=== PATIENT | female | born 1990 | race Caucasian/White ===

== ENCOUNTER 2016-12-02 12:19 | Inpatient (IN) | payer OTHER ==
[~2016-12-02] VITALS: Ht 182.9 cm; Wt 133.8 kg
[~2016-12-02 12:19] MED LIST: NOHOMEMEDS
[2016-12-02] MEDS ORDERED: ONE-A-DAY ESSE1 EAC1 PO (15:28)
[2016-12-02] MEDS ORDERED: CLINDAMYCIN HC300 MG PO (15:28)
[2016-12-02] MEDS ORDERED: ADVIL,NUPRIN,M200 MG PO (15:29)
[2016-12-02] MEDS ORDERED: TYLENOL EXTRA500 MG PO (15:29)
[2016-12-02 15:58] LABS: HEMATOCRIT 27.5 % (36.0-46.0); MCH 27.5 PG (29.0-34.0); MCHC 33.5 G/DL (30.0-36.0); MCV 82.3 FL (83-99); MEAN PLAT.VOLUME 10.5 uM^3 (9.5-12.4); PLATELET COUNT 261 K/uL (156-360); RBC DIS.WIDTH-CV 12.7 % (11.8-14.6); RBC DIS.WIDTH-SD 38.5 % (39-53); RED BLOOD COUNT 3.34 M/uL (3.80-5.20); WHITE BLOOD COUNT 15.7 K/uL (4.1-10.2)
[2016-12-02 16:06] LABS: CHLORIDE 108 mEq/L (99-109); POTASSIUM 3.6 mEq/L (3.7-5.4); SODIUM 142 mEq/L (136-147)
[2016-12-02 16:07] LABS: GLUCOSE 87 mg/dL (70-99)
[2016-12-02 16:09] LABS: ANION GAP 10 MEQ/L (2-14)
[2016-12-02 16:11] LABS: GFR ESTIMATE (CALCULATED) > 59 mL/min/
[2016-12-02 16:12] LABS: UREA NITROGEN (BUN) 12 mg/dL (9-23)
[2016-12-02 19:16] VITALS: BP 163/96
[2016-12-02 19:45] VITALS: BP 154/91
[2016-12-02 23:17] VITALS: BP 142/86
[2016-12-03 03:38] VITALS: BP 165/89
[2016-12-03 06:48] LABS: BASOPHIL COUNT 0.1 K/uL (0-0.1); EOSINOPHIL (%) 3.4 % (0-5); EOSINOPHIL COUNT 0.4 K/uL (0-0.3); HEMATOCRIT 31.4 % (36.0-46.0); IMMATURE GRANULOCYTE (%) 0.4 % (0.0-0.7); INSTRUMENT ABS NEUTROPHIL CT 7.1 K/uL; LYMPHOCYTE COUNT 2.7 K/uL (1.0-2.8); MCH 27.3 PG (29.0-34.0); MCHC 33.4 G/DL (30.0-36.0); MCV 81.8 FL (83-99); MEAN PLAT.VOLUME 10.4 uM^3 (9.5-12.4); MONOCYTE (%) 7.7 % (3-12); MONOCYTE COUNT 0.9 K/uL (0-0.8); NEUTROPHIL COUNT 7.1 K/uL (1.8-6.4); PLATELET COUNT 191 K/uL (156-360); RBC DIS.WIDTH-CV 12.6 % (11.8-14.6); RBC DIS.WIDTH-SD 37.7 % (39-53); RED BLOOD COUNT 3.84 M/uL (3.80-5.20); WHITE BLOOD COUNT 11.1 K/uL (4.1-10.2)
[2016-12-03 07:08] LABS: ANION GAP 7 MEQ/L (2-14); CHLORIDE 108 MEQ/L (99-109); GFR ESTIMATE (CALCULATED) > 59 mL/min/; GLUCOSE 90 mg/dL (70-99); SAMPLE HEMOLYSIS CHECK 0; SAMPLE ICTERIC CHECK 0; SAMPLE LIPEMIA CHECK 0; SODIUM 142 MEQ/L (136-147); UREA NITROGEN (BUN) 9 mg/dL (9-23)
[2016-12-03 08:35] VITALS: BP 141/78
[2016-12-03 17:48] VITALS: BP 134/91
[2016-12-03 18:56] VITALS: BP 142/70
[2016-12-03 23:16] VITALS: BP 146/70
[2016-12-04 03:25] VITALS: BP 114/69
[2016-12-04 07:40] VITALS: BP 128/75
[2016-12-04 15:39] VITALS: BP 139/82
[2016-12-04 23:19] VITALS: BP 131/73
[2016-12-05 06:43] LABS: BASOPHIL COUNT 0.1 K/uL (0-0.1); EOSINOPHIL (%) 3.6 % (0-5); EOSINOPHIL COUNT 0.3 K/uL (0-0.3); IMMATURE GRANULOCYTE (%) 0.6 % (0.0-0.7); IMMATURE GRANULOCYTE COUNT 0.1 K/uL; INSTRUMENT ABS NEUTROPHIL CT 5.8 K/uL; LYMPHOCYTE COUNT 1.8 K/uL (1.0-2.8); MCH 28.2 PG (29.0-34.0); MCHC 34.5 G/DL (30.0-36.0); MCV 81.8 FL (83-99); MONOCYTE (%) 8.7 % (3-12); MONOCYTE COUNT 0.8 K/uL (0-0.8); NEUTROPHIL COUNT 5.8 K/uL (1.8-6.4); PLATELET COUNT 193 K/uL (156-360); RBC DIS.WIDTH-CV 12.5 % (11.8-14.6); RBC DIS.WIDTH-SD 37.1 % (39-53); RED BLOOD COUNT 3.79 M/uL (3.80-5.20); WHITE BLOOD COUNT 8.7 K/uL (4.1-10.2)
[2016-12-05 07:07] VITALS: BP 157/93
[2016-12-05 07:11] LABS: ALKALINE PHOSPHATASE 52 IU/L (3-129); ANION GAP 8 MEQ/L (2-14); CHLORIDE 105 MEQ/L (99-109); GFR ESTIMATE (CALCULATED) > 59 mL/min/; GLUCOSE 96 mg/dL (70-99); POTASSIUM 3.5 MEQ/L (3.7-5.4); SAMPLE HEMOLYSIS CHECK 0; SAMPLE ICTERIC CHECK 0; SAMPLE LIPEMIA CHECK 0; SODIUM 144 MEQ/L (136-147); TOTAL BILIRUBIN 0.5 MG/DL (0.0-1.0); UREA NITROGEN (BUN) 7 mg/dL (9-23)
[2016-12-05] MEDS ORDERED: VICODIN 5-3001 EACH PO (07:28)
[2016-12-05] MEDS ORDERED: DYNAPEN500 MG PO (07:28)
[2016-12-05] MEDS ORDERED: VALTREX1000 MG PO (07:28)
[2016-12-05] MEDS ORDERED: FLORASTOR250 MG PO (07:28)
[2016-12-05 12:11] VITALS: BP 146/75
== END 2016-12-05 12:51 | disposition home or self-care (01) | DRG 758 ==
LOC: EME 12:19 → 2EASTP 17:18 → EDOF 17:18 → 2EASTP 19:12
PROVIDERS: Nurse Practitioner Adult Health; Physician Assistant
DX: N76.2 Acute vulvitis (principal); L02.214 Cutaneous abscess of groin; L03.314 Cellulitis of groin; B00.1 Herpesviral vesicular dermatitis; D64.9 Anemia, unspecified; N76.4 Abscess of vulva; E66.9 Obesity, unspecified; Z68.41 Body mass index [BMI] 40.0-44.9, adult; Z88.1 Allergy status to other antibiotic agents; B95.61 Methicillin susceptible Staphylococcus aureus infection as the cause of diseases classified elsewhere
CPT/HCPCS: 80048; 80053; 80069; 83605; 85025; 85027; 87040; 87070; 87075; 87077; 87147; 87186; 87205; 99281; 99285; J0330; J1170; J2250; J2405; J3010; J3370; J7030; J7050; Q0169; S0020; S0032